=== PATIENT | male | born 1980 | race Two or more races ===

== ENCOUNTER 2017-11-14 12:52 | Emergency (ER) | payer MEDICAID ==
[~2017-11-14] VITALS: Ht 193 cm; Wt 81.6 kg
[2017-11-14 13:10] VITALS: BP 138/72
--- NOTE | 2017-11-14 13:24 | Emergency Room Report ---
History of Present Illness General Chief Complaint: Pain Source: Patient Present Illness HPI Patient is a 29-year-old female who presents today with complaints of left rib pain that began last night. He states he is slipped and fell landing on a brick wall on his left side. He states he is currently status in severity and has not taken medication for it. He denies any head trauma or loss of consciousness, nausea, vomiting, abdominal pain, SOB or associated symptoms. He has no significant medical problems and denies tobacco, alcohol or drug use. Allergies: Coded Allergies: No Known Allergies (Unverified , 11/14/17) Patient History Reviewed Nursing Documentation: PMH: Agreed, PSxH: Agreed Nursing Documentation-PMH Past Medical History: No History, Except For Review of Systems Musculoskeletal: Reports: other - left rib pain Physical Exam Vital Signs Date Time Temp Pulse Resp B/P (MAP) Pulse Ox O2 Delivery O2 Flow Rate FiO2 11/14/17 13:00 97.5 57 18 144/75 96 Room Air Sp02 EP Interpretation: reviewed, normal General Appearance: no apparent distress, alert, GCS 15, non-toxic Head: normocephalic, atraumatic Eyes: bilateral eye normal inspection, bilateral eye PERRL ENT: hearing grossly normal, normal pharynx, no angioedema, normal voice Neck: full range of motion, supple/symm/no masses Respiratory: chest non-tender, lungs clear, normal breath sounds, speaking full sentences Cardiovascular #1: regular rate, rhythm, no edema Cardiovascular #2: 2+ carotid (R), 2+ carotid (L), 2+ radial (R), 2+ radial (L) , 2+ dorsalis pedis (R), 2+ dorsalis pedis (L) Gastrointestinal: normal bowel sounds, non tender, soft, non-distended, no guarding, no rebound Rectal: deferred Genitourinary: normal inspection, no CVA tenderness Musculoskeletal: back normal, gait/station normal, normal range of motion, non- tender, calf tenderness, other - TTP left inferior rib Neurologic: alert, oriented x3, responsive, motor strength/tone normal, sensory intact, speech normal Psychiatric: judgement/insight normal, memory normal, mood/affect normal, no suicidal/homicidal ideation Reflexes: 3+ bicep (R), 3+ bicep (L), 3+ tricep (R), 3+ tricep (L), 3+ knee (R) , 3+ knee (L) Skin: normal color, no rash, warm/dry, well hydrated Lymphatic: no adenopathy Medical Decision Making PA Attestation Supervising physician Dr. Jiang Diagnostic Impression: Primary Impression: Rib fracture Additional Impression: Fall ER Course Patient's son to have rib fracture on x-ray. Is also noted to have questionable left-sided pleural effusion, no pneumothorax noted. Reevaluation blockages his pain is improved with medication. He denies any shortness of breath. Patient discharged home with [place] and educated on symptomatic relief. Pt understands. Chest X-Ray Diagnostic Results Chest X-Ray Diagnostic Results : Chest X-Ray Ordered: Yes # of Views/Limited/Complete: 1 View Indication: Other - pain EP Interpretation: Yes PA Xray: Interpretation reviewed, by supervising MD, and agrees with findings. Interpretation: no consolidation, no effusion, no pneumothorax, no acute cardiopulmonary disease Impression: No acute disease Electronically Signed by: Shree Other X-Ray Diagnostic Results Other X-Ray Diagnostic Results : X-Ray ordered: left rib # of Views/Limited Vs Complete: 4 View Indication: Pain EP Interpretation: Yes PA Xray: Interpretation reviewed, by supervising MD, and agrees with findings. Interpretation: no dislocation, no soft tissue swelling, other - fx rib 8-10 Impression: Other - rib fracture Electronically Signed by: Shree Last Vital Signs Date Time Temp Pulse Resp B/P (MAP) Pulse Ox O2 Delivery O2 Flow Rate FiO2 11/14/17 13:00 97.5 57 18 144/75 96 Room Air Disposition: HOME, SELF-CARE Condition: Stable Scripts Hydrocodone Bit/Acetaminophen 5-325* (NORCO 5-325*) 1 Each Tablet 1 TAB ORAL Q4H Y for For Pain, #20 TAB 0 Refills Prov: Eleni Louis 11/14/17 Patient Instructions: Rib Fracture, [id number] Eleni Louis Nov 14, 2017 13:24
[2017-11-14] MEDS: Ketorolac 60mg Inj IM ONE (13:39)
[2017-11-14] MEDS ORDERED: NORCO 5-325 TA1 EACH ORAL (15:14)
--- NOTE | 2017-11-14 15:23 | Diagnostic Imaging Report ---
Indication: Pain Technique: Multiple views of the left ribs Comparison: none Findings: There are fractures of the distal and lateral ninth through 11th ribs. No gross pneumothorax. There is left-sided pleural fluid versus pleural thickening. There is thoracic spine fusion hardware. Impression: Positive for fractures of the left ninth through 11th ribs Other findings as noted This agrees with the preliminary interpretation provided by the emergency room physician
--- NOTE | 2017-11-14 15:25 | Diagnostic Imaging Report ---
Indication: Chest pain Technique: One view of the chest Comparison: none Findings: There is blunting of left costophrenic sulcus. There is thoracic scoliotic deformity with thoracic spine fusion hardware in place. The remainder of the lungs and pleural spaces are clear. Heart size is normal. Left rib fractures demonstrated on concomitant rib images are not clearly evident. No pneumothorax Impression: Left costophrenic angle blunting, fluid versus scarring Other findings as noted. This agrees with the preliminary interpretation provided by the emergency room physician
[2017-11-14 16:30] VITALS: BP 138/72
== END 2017-11-14 16:30 | disposition home or self-care (01) ==
LOC: EMR 13:55
DX: S22.42XA Multiple fractures of ribs, left side, initial encounter for closed fracture (principal); W01.0XXA Fall on same level from slipping, tripping and stumbling without subsequent striking against object, initial encounter; Y92.9 Unspecified place or not applicable
CPT/HCPCS: 71045; 96372; 99284

== ENCOUNTER 2017-11-22 23:38 | Emergency (ER) | payer MEDICAID ==
[~2017-11-22] VITALS: Ht 193 cm; Wt 81.6 kg
[~2017-11-22 23:38] MED LIST: NORCO 5-325 TA1 EACH ORAL
[2017-11-22] MEDS ORDERED: IBUPROFEN600 MG ORAL (23:55)
[2017-11-23] MEDS ORDERED: Norco 5mg/325mg tab ORAL ONE (00:30)
[2017-11-23 01:03] LABS: BASOPHILS % (AUTO) 1.2 % (0.0-2.0); EOSINOPHILS % (AUTO) 1.5 % (0.0-3.0); HEMATOCRIT 44.9 % (42.0-52.0); HEMOGLOBIN 15.1 G/DL (14.2-18.0); LYMPHOCYTES % (AUTO) 24.9 % (20.0-45.0); MEAN CORPUSCULAR VOLUME 95 FL (80-99); MONOCYTES % (AUTO) 9.3 % (1.0-10.0); PLATELET COUNT 206 K/UL (150-450); RED BLOOD COUNT 4.75 M/UL (4.70-6.10); RED CELL DISTRIBUTION WIDTH 11.3 % (11.6-14.8); WHITE BLOOD COUNT 4.6 K/UL (4.8-10.8)
[2017-11-23 01:13] LABS: ANION GAP 5 mmol/L (5-15); BLOOD UREA NITROGEN 16 mg/dL (7-18); CALCIUM 8.4 MG/DL (8.5-10.1); CARBON DIOXIDE 30 MMOL/L (21-32); CHLORIDE 103 MMOL/L (98-107); POTASSIUM 4.6 MMOL/L (3.5-5.1); SODIUM 138 MMOL/L (136-145)
[2017-11-23 01:26] LABS: ALANINE AMINOTRANSFERASE 16 U/L (12-78); ALBUMIN 3.7 G/DL (3.4-5.0); ALBUMIN/GLOBULIN RATIO 1.2 (1.0-2.7); ALKALINE PHOSPHATASE 97 U/L (46-116); ASPARTATE AMINO TRANSFERASE 24 U/L (15-37); BILIRUBIN,TOTAL 0.5 MG/DL (0.2-1.0); CKMB 1.7 NG/ML (0.0-3.6); CREATINE KINASE 307 U/L (26-308)
[2017-11-23 01:50] VITALS: BP 115/65
--- NOTE | 2017-11-23 02:34 | Emergency Room Report ---
History of Present Illness General Chief Complaint: Pain Source: Patient Present Illness HPI Pt with h/o scoliosis. presents with syncope and head injury. Went to [facility] and had syncope. said he hit is head. no n/v/d. fell last week and had 3 rib frx. also with increasing cough and congestion for last 3 days. Allergies: Coded Allergies: No Known Allergies (Unverified , 11/14/17) Patient History Past Medical History: see triage record, old chart reviewed Past Surgical History: other Pertinent Family History: none Social History: Denies: smoking Immunizations: other Reviewed Nursing Documentation: PMH: Agreed, PSxH: Agreed Nursing Documentation-PMH Past Medical History: No Stated History Review of Systems Eye: Denies: eye pain, blurred vision ENT: Denies: ear pain, nose congestion, throat swelling Respiratory: Denies: cough, shortness of breath Cardiovascular: Reports: chest pain, Denies: palpitations Gastrointestinal: Denies: abdominal pain, diarrhea, nausea, vomiting Musculoskeletal: Denies: back pain, joint pain Skin: Denies: rash Neurological: Reports: headache, Denies: numbness Endocrine: Denies: increased thirst, increased urine Hematologic/Lymphatic: Denies: easy bruising All Other Systems: negative except mentioned in HPI Physical Exam Vital Signs Date Time Temp Pulse Resp B/P (MAP) Pulse Ox O2 Delivery O2 Flow Rate FiO2 11/22/17 23:52 97.9 76 14 120/70 96 Room Air vitals normal Sp02 EP Interpretation: reviewed, normal General Appearance: well appearing, no apparent distress, alert Head: normocephalic, atraumatic Eyes: bilateral eye PERRL, bilateral eye EOMI ENT: hearing grossly normal, normal pharynx Neck: full range of motion, supple, no meningismus Respiratory: chest non-tender, lungs clear, normal breath sounds Cardiovascular #1: regular rate, rhythm, no murmur Gastrointestinal: normal bowel sounds, non tender, no mass, no organomegaly, no bruit, non-distended Musculoskeletal: back normal, gait/station normal, normal range of motion Psychiatric: mood/affect normal Skin: warm/dry Medical Decision Making Diagnostic Impression: Primary Impression: Head injury, acute Qualified Codes: S09.90XA - Unspecified injury of head, initial encounter Additional Impressions: Syncope Qualified Codes: R55 - Syncope and collapse Pericarditis Qualified Codes: I30.9 - Acute pericarditis, unspecified ER Course Patient with head injury and syncope. No ACS. No PE pneumonia. May have pericarditis. Lab Results Impression labs normal EKG Diagnostic Results Rate: normal Rhythm: NSR ST Segments: other - diffuse ST elevation. Rhythm Strip Diag. Results Rhythm Strip Time: 02:43 EP Interpretation: yes Rate: 57 Rhythm: NSR, no PVC's, no ectopy Chest X-Ray Diagnostic Results Chest X-Ray Diagnostic Results : Chest X-Ray Ordered: Yes # of Views/Limited/Complete: 1 View Indication: Chest Pain EP Interpretation: Yes Interpretation: no consolidation, no effusion, no pneumothorax Impression: No acute disease Electronically Signed by: Chester Adams MD Last Vital Signs Date Time Temp Pulse Resp B/P (MAP) Pulse Ox O2 Delivery O2 Flow Rate FiO2 11/23/17 01:50 97.9 44 19 115/65 100 Room Air Status: improved Disposition: HOME, SELF-CARE Condition: Stable Scripts Ibuprofen* (MOTRIN*) 600 Mg Tablet 600 MG ORAL THREE TIMES A DAY, #30 TAB 0 Refills Prov: CHESTER ADAMS M.D. 11/23/17 Additional Instructions: followup with your DrRyder In 7 days. Return if worse CHESTER ADAMS M.D. Nov 23, 2017 02:34
[2017-11-23] MEDS ORDERED: IBUPROFEN600 MG ORAL (02:44)
[2017-11-23 03:04] VITALS: BP 101/64
--- NOTE | 2017-11-23 10:24 | Diagnostic Imaging Report ---
Indications: Head trauma Technique: Spiral acquisitions obtained through the brain. Angled axial and coronal 5 x 5 mm slices were reconstructed. Total dose length product 1442.94 mGycm. CTDI vol(s) 70.38 mGy. Dose reduction achieved using automated exposure control Comparison: None. Findings: The extra-axial CSF spaces near the vertex are somewhat prominent. Normal-sized ventricles. No acute intracranial hemorrhage or edema. No mass effect nor midline shift. Normal vera-white differentiation. Intact calvarium. Visualized orbits and sinuses are unremarkable Impression: Negative This agrees with the preliminary interpretation provided by the emergency room physician The CT scanner at [facility] is accredited by the [employer] and the scans are performed using protocols designed to limit radiation exposure to as low as reasonably achievable to attain images of sufficient resolution adequate for diagnostic evaluation.
--- NOTE | 2017-11-23 10:35 | Diagnostic Imaging Report ---
Indication: Chest pain Technique: One view of the chest Comparison: 11/14/2017 Findings: There is scoliotic deformity and evidence of prior posterior fusion surgery. Large air cyst is again demonstrated in the left midlung. Hazy opacities of the left lung base an midlung may indicate a small amount of pleural fluid, hazy consolidation, or be just an artifact related to the thoracic deformity. There is increasing obscurity of the left lung base The right lung and pleural space are clear. The heart is upper limits normal in size. Impression: Possibly increasing left pleural effusion Hazy parenchymal consolidation also possible Left lung cyst, more apparent than on the previous exam Other stable findings as described
--- NOTE | 2017-11-23 15:55 | Cardiology Report ---
APPROVED REPORT EKG Measurement Heart [id number] Sinus bradycardia Possible Left atrial enlargement Left ventricular hypertrophy ST elevation, consider inferolateral injury or acute infarct T wave abn - consider anteroseptal ischemia Abnormal ECG
== END 2017-11-23 04:45 | disposition home or self-care (01) ==
LOC: EMR 11-23 00:16
DX: S09.8XXA Other specified injuries of head, initial encounter (principal); W19.XXXA Unspecified fall, initial encounter; Y92.9 Unspecified place or not applicable; I31.9 Disease of pericardium, unspecified; R55 Syncope and collapse
CPT/HCPCS: 36415; 70450; 71045; 80053; 82550; 82553; 84484; 85025; 86140; 93005; 96360; 99284

== ENCOUNTER 2019-06-30 09:23 | Emergency (ER) | payer MEDICAID ==
[~2019-06-30] VITALS: Ht 193 cm; Wt 81.6 kg
[~2019-06-30 09:23] MED LIST changes: +IBUPROFEN600 MG ORAL
--- NOTE | 2019-06-30 09:30 | NUR ---
ED Nurse Note: PT WALKED IN TO ER TODAY FROM HOME. AOX4. PT C/O RIGHT HAND SWELLING X 1 WEEK AGO. PT DENIES ANY RECENT INJURY OR TRAUMA. LIMITED ROM OF THUMB AND WRIST BUT FULL ROM OF OTHER DIGITS. PT DENIES NUMBNESS OR TINGLING. CIRCULATION AND SENSATION INTACT, CAP REFILL <2 SECONDS. OBVIOUS SWELLING NOTED TO RIGHT HAND.
--- NOTE | 2019-06-30 10:02 | NUR ---
ED Nurse Note: XRAY AT BEDSIDE.
[2019-06-30 10:19] VITALS: BP 116/66
--- NOTE | 2019-06-30 10:23 | Diagnostic Imaging Report ---
Clinical Indication:Pain, status post trauma Technique: 3 views of the left wrist Comparison: None Findings: There is marked chronic appearing abnormality of the wrist. There is marked deformity of the scaphoid, lunate, trapezium, trapezoid, and probably the capitate. There is marked alignment abnormality, with severe posterior tilting of the with apparent dorsal tilt of the lunate and dorsal displacement of the distal carpal row. Impression: Severe alignment abnormality, suspect represents dorsal intercalated segment instability. Limited assessment of the bony anatomy, due to bony overlap related to the above as well as likely degenerative remodeling. No gross fracture, but the distorted anatomy precludes confident exclusion of acute fracture.
[2019-06-30] MEDS ORDERED: IBUPROFEN600 MG ORAL (11:21)
[2019-06-30] MEDS ORDERED: NORCO 5-325 TA1 EACH ORAL (11:21)
[2019-06-30 11:30] VITALS: BP 118/64
--- NOTE | 2019-06-30 11:30 | NUR ---
ED Nurse Note: PT SITTING PEACEFULLY IN CHAIR IN NAD. AOX4. PRESCRIPTIONS AND DISCHARGE PAPERWORK EXPLAINED TO PT. PT VERBALIZES UNDERSTANDING AND ALL QUESTIONS ANSWERED. PRESCRIPTIONS AND DISCHARGE PAPERWORK GIVEN TO PT AND ID WRISTBAND REMOVED. PT WALKED OUT OF ER WITH STEADY GAIT AND ALL BELONGINGS ACCOMPANIED BY FRIEND.
--- NOTE | 2019-06-30 17:49 | Emergency Room Report ---
History of Present Illness General Chief Complaint: Upper Extremity Injury Source: Patient Present Illness HPI Patient has a history of Marfan syndrome. Patient states that he was doing some heavy shoveling yesterday. Since then he has developed some swelling and tenderness involving his left wrist. He denies any direct trauma. He has pain with range of motion. Denies any chest pain shortness of breath nausea vomiting diarrhea or chills. Symptoms noted to be moderate to severe. Denies any numbness tingling or weakness. No other modifying factors. No other associated signs and symptoms. No other complaints were noted. Allergies: Coded Allergies: No Known Allergies (Unverified , 11/14/17) Patient History Past Medical History: other - Marfan syndrome Past Surgical History: none Pertinent Family History: none Social History: Denies: smoking, alcohol use, drug use Reviewed Nursing Documentation: PMH: Agreed; PSxH: Agreed Nursing Documentation-PMH Past Medical History: No History, Except For Review of Systems All Other Systems: negative except mentioned in HPI Physical Exam Vital Signs Date Time Temp Pulse Resp B/P (MAP) Pulse Ox O2 Delivery O2 Flow Rate FiO2 06/30/19 09:30 98.1 68 20 111/64 (80) 99 Room Air Sp02 EP Interpretation: reviewed, normal General Appearance: normal inspection, well appearing, no apparent distress, alert, thin, other - Very tall Head: atraumatic Eyes: bilateral eye normal inspection ENT: hearing grossly normal, normal voice Neck: normal inspection, supple Respiratory: lungs clear, normal breath sounds, no respiratory distress, no wheezing Cardiovascular #1: regular rate, rhythm, no edema Gastrointestinal: non tender, soft, no guarding Genitourinary: no CVA tenderness Musculoskeletal: back normal, decreased range of motion - tender left wrist with joint effusion, no erythema Neurologic: normal inspection, alert, responsive, speech normal Psychiatric: normal inspection, judgement/insight normal, mood/affect normal Skin: no rash Procedures Splinting Splinting : Consent: Verbal Location: left wrist Pre-Made Type: velcro Splint: thumb spica Pre-Proc Neuro Vasc Exam: normal Post-Proc Neuro Vasc Exam: normal Patient Tolerated: Well Complications: None Medical Decision Making Diagnostic Impression: Primary Impression: Strain of left wrist ER Course Patient presents to the emergency department today complaining of pain in the left wrist with swelling. Differential considerations include fracture dislocation versus strain versus joint effusion. Given patient's presentation I felt that x-rays are indicated. X-rays was interpreted by radiology to be positive for abnormality. "Severe alignment abnormality, suspect represents dorsal intercalated segment instability".. This is consistent with patient's Marfan syndrome. Given that this is likely a sterile effusion I do not recommend aspiration. Instead a thumb spica was placed on the patient to rest the wrist. Patient was advised to follow-up with outpatient orthopedics. Patient was given pain medications patient is advised to follow up with primary doctor in 2-3 days and return the emergency room for any worsening symptoms and as needed. Last Vital Signs Date Time Temp Pulse Resp B/P (MAP) Pulse Ox O2 Delivery O2 Flow Rate FiO2 06/30/19 11:30 98.3 62 17 118/64 99 Room Air Status: improved Disposition: HOME, SELF-CARE Condition: Stable Scripts Ibuprofen* (MOTRIN*) 600 Mg Tablet 600 MG ORAL Q8H PRN for For Pain, #30 TAB 0 Refills Prov: Adryan Cross MD 06/30/19 Hydrocodone Bit/Acetaminophen 5-325* (NORCO 5-325*) 1 Each Tablet 1 TAB ORAL Q4H PRN for For Pain, #20 TAB 0 Refills Prov: Adryan Cross MD 06/30/19 Patient Instructions: Cast or Splint Care, [id number], Wrist Pain Adryan Cross MD Jun 30, 2019 17:49
== END 2019-06-30 11:31 | disposition home or self-care (01) ==
LOC: EMR 09:39
DX: S66.912A Strain of unspecified muscle, fascia and tendon at wrist and hand level, left hand, initial encounter (principal); Q87.40 Marfan syndrome, unspecified; X58.XXXA Exposure to other specified factors, initial encounter; Y93.H1 Activity, digging, shoveling and raking; Y92.9 Unspecified place or not applicable
CPT/HCPCS: 73110; Z7502; 29125; 99283